=== PATIENT | female | born 1980 | race American Indian/Alaskan Native ===

== ENCOUNTER 2017-11-10 16:19 | Observation (INO) | payer BC ==
[2017-11-10 17:12] LABS: Basophils % (Auto) 0.3 % (0.0-1.8); Eosinophils # (Auto) 0.5 K/mm3 (0.0-0.4); Eosinophils % (Auto) 5.4 % (0.0-4.3); Hematocrit 20.5 % (30.3-42.9); Hemoglobin 6.4 gm/dl (10.1-14.3); Lymphocytes # (Auto) 1.6 K/mm3 (1.2-5.4); Lymphocytes % (Auto) 17.9 % (13.4-35.0); Mean Corpuscular HGB Conc 31 % (30-34); Mean Corpuscular Volume 76 fl (79-97); Monocytes # (Auto) 0.4 K/mm3 (0.0-0.8); Platelet Count 744 K/mm3 (140-440); Red Blood Count 2.72 M/mm3 (3.65-5.03)
[2017-11-10 17:22] LABS: Mean Corpuscular Hemoglobin 23 pg (28-32); Red Cell Distribution Width 23.7 % (13.2-15.2)
[2017-11-10 17:42] LABS: BUN/Creatinine Ratio 11; Blood Urea Nitrogen 8 mg/dL (7-17); Calcium 9.4 mg/dL (8.4-10.2); Hemolysis Index 0
[2017-11-10] MEDS ORDERED: NACL 0.9% 500 ML 500 ML IV ONE (20:42)
--- NOTE | 2017-11-10 20:53 | Emergency Department Report ---
HPI - General Chief Complaint: Arrhythmia/Palpitations Time Seen by Provider: 11/10/17 20:34 - HPI HPI: Room 6 The patient is a 36-year-old female presenting with a chief complaint of lightheadedness. The patient states her symptoms began 10/30/2017 with lightheadedness feeling sluggish and dizziness occasionally with movement. The patient states she went to [facility] for evaluation which included blood work as well as a CT of the chest which was reportedly negative. The patient states her symptoms persist so she came to the ED for reevaluation. Patient denies pain of any type of fever. Patient denies bright red blood per rectum but states her stool had been dark for 2-3 days while she was taking iron tablets. The patient states she does not have menstrual cycles since she's had an IUD placed Location: [See above] Duration: Approximately 1.5 weeks Quality: Lightheadedness Severity: Moderate Modifying factors: [see above] Context: [see above] Mode of transportation: Unknown ED Past Medical Hx - Past Medical History Previous Medical History?: Yes Additional medical history: Iron deficiency anemia - Surgical History Past Surgical History?: Yes Additional Surgical History: x 1, Mirena IUD - Family History Family history: no significant - Social History Smoking Status: Never Smoker Substance Use Type: None (denies illicit drug use), Alcohol (occasional) - Medications Home Medications: Home Medications Medication Instructions Recorded Confirmed Last Taken Type No Known Home Medications [No 11/10/17 11/10/17 Unknown History Reported Home Medications] ED Review of Systems ROS: Stated complaint: HEART RACING/SLUGGISH Other details as noted in HPI Constitutional: malaise Eyes: denies: eye pain ENT: denies: throat pain Cardiovascular: denies: chest pain Endocrine: denies: unexplained weight loss Gastrointestinal: melena (?). denies: abdominal pain Genitourinary: denies: dysuria Musculoskeletal: denies: back pain Skin: denies: change in color Neurological: other (dizziness). denies: headache Physical Exam - Physical Exam Vital Signs: Vital Signs 11/10/17 16:23 Temperature 99.3 F Pulse Rate 109 H Respiratory 18 Rate Blood Pressure 145/86 O2 Sat by Pulse 100 Oximetry Physical Exam: GENERAL: The patient is well-developed well-nourished female lying on stretcher not appearing to be in acute distress. [] HEENT: Normocephalic. Atraumatic. Extraocular motions are intact. Patient has moist mucous membranes. NECK: Supple. Trachea midline CHEST/LUNGS: Clear to auscultation. There is no respiratory distress noted. HEART/CARDIOVASCULAR: Regular. There is tachycardia. There is no gallop rub or murmur. ABDOMEN: Abdomen is soft, nontender. Patient has normal bowel sounds. There is no abdominal distention. SKIN: There is no rash. There is no edema. There is no diaphoresis. NEURO: The patient is awake, alert, and oriented. The patient is cooperative. The patient has no focal neurologic deficits. The patient has normal speech. Cranial nerves II through XII grossly intact, no drift MUSCULOSKELETAL: There is no evidence of acute injury. RECTAL: Guaiac-negative brown stool ED Course Vital Signs 11/10/17 16:23 Temperature 99.3 F Pulse Rate 109 H Respiratory 18 Rate Blood Pressure 145/86 O2 Sat by Pulse 100 Oximetry ED Medical Decision Making - Lab Data Result diagrams: 11/10/17 16:50 11/10/17 16:50 Laboratory Tests 11/10/17 11/10/17 11/10/17 16:50 16:50 16:50 WBC 9.0 RBC 2.72 L Hgb 6.4 L Hct 20.5 L MCV 76 L MCH 23 L MCHC 31 RDW 23.7 H Plt Count 744 H Lymph % (Auto) 17.9 [place] % (Auto) 5.0 Eos % (Auto) 5.4 H Baso % (Auto) 0.3 Lymph # 1.6 [place] # 0.4 Eos # 0.5 H Baso # 0.0 Seg Neutrophils % 71.4 H Seg Neutrophils # 6.4 PT INR APTT Sodium 138 Potassium 4.3 Chloride 97.4 L Carbon Dioxide 24 Anion Gap 21 BUN 8 Creatinine 0.7 Estimated GFR > 60 BUN/Creatinine Ratio 11 Glucose 123 H Calcium 9.4 Troponin T < 0.010 HCG, Qual Negative Urine Color Urine Turbidity Urine pH Ur Specific [place] Urine Protein Urine Glucose (UA) Urine Ketones Urine Blood Urine Nitrite Ur Reducing Substances Urine Bilirubin Urine Ictotest Urine Urobilinogen Ur Leukocyte Esterase Urine WBC (Auto) Urine RBC (Auto) U Epithel Cells (Auto) Urine Bacteria (Auto) Urine Mucus Urine HCG, Qual Blood Type Crossmatch 11/10/17 11/10/17 11/10/17 20:33 20:37 20:39 WBC RBC Hgb Hct MCV MCH MCHC RDW Plt Count Lymph % (Auto) [place] % (Auto) Eos % (Auto) Baso % (Auto) Lymph # [place] # Eos # Baso # Seg Neutrophils % Seg Neutrophils # PT 12.3 INR 0.87 APTT 30.0 Sodium Potassium Chloride Carbon Dioxide Anion Gap BUN Creatinine Estimated GFR BUN/Creatinine Ratio Glucose Calcium Troponin T < 0.010 HCG, Qual Urine Color Urine Turbidity Urine pH Ur Specific [place] Urine Protein Urine Glucose (UA) Urine Ketones Urine Blood Urine Nitrite Ur Reducing Substances Urine Bilirubin Urine Ictotest Urine Urobilinogen Ur Leukocyte Esterase Urine WBC (Auto) Urine RBC (Auto) U Epithel Cells (Auto) Urine Bacteria (Auto) Urine Mucus Urine HCG, Qual Blood Type O POSITIVE Crossmatch See Detail 11/10/17 20:58 WBC RBC Hgb Hct MCV MCH MCHC RDW Plt Count Lymph % (Auto) [place] % (Auto) Eos % (Auto) Baso % (Auto) Lymph # [place] # Eos # Baso # Seg Neutrophils % Seg Neutrophils # PT INR APTT Sodium Potassium Chloride Carbon Dioxide Anion Gap BUN Creatinine Estimated GFR BUN/Creatinine Ratio Glucose Calcium Troponin T HCG, Qual Urine Color Yellow Urine Turbidity Clear Urine pH 5.0 Ur Specific [place] 1.015 Urine Protein <15 mg/dl Urine Glucose (UA) Neg Urine Ketones Neg Urine Blood Neg Urine Nitrite Pos Ur Reducing Substances Not Reportable Urine Bilirubin Neg Urine Ictotest Not Reportable Urine Urobilinogen < 2.0 Ur Leukocyte Esterase Sm Urine WBC (Auto) 34.0 H Urine RBC (Auto) 2.0 U Epithel Cells (Auto) 4.0 Urine Bacteria (Auto) 2+ Urine Mucus 2+ Urine HCG, Qual Negative Blood Type Crossmatch - EKG Data -: EKG Interpreted by Me EKG shows normal: sinus rhythm Rate: normal - EKG Data When compared to previous EKG there are: previous EKG unavailable Interpretation: nonspecific ST-T wave musa (T-wave inversions in leads 3, aVF) - Differential Diagnosis symptomatic anemia, GI bleed Critical care attestation.: If time is entered above; I have spent that time in minutes in the direct care of this critically ill patient, excluding procedure time. ED Disposition Clinical Impression: Symptomatic anemia, UTI (urinary tract infection) Disposition: 09 OP ADMIT IP TO THIS HOSP Is pt being admited?: Yes Does the pt Need Aspirin: No Condition: Fair Referrals: PRIMARY CARE,MD [Primary Care Provider] - 3-5 Days Time of Disposition: 21:46 (hospitalist paged (Dr Johnson))
[2017-11-10 21:08] LABS: INR 0.87 (0.87-1.13)
[2017-11-10 21:18] LABS: HCG Qualitative,Urine Negative (Negative)
[2017-11-10 21:19] LABS: Bacteria,Urine 2+ /HPF (Negative); Bilirubin,Urine NEG (Negative); Blood,Urine NEG (Negative); Color,Urine Yellow (Yellow); Mucus,Urine 2+ /HPF; Protein,Urine <15 mg/dL mg/dL (Negative); Urobilinogen,Urine < 2.0 mg/dL (<2.0)
[2017-11-10 21:50] LABS: Free T4 (Free Thyroxine) 1.15 ng/dL (0.76-1.46)
[2017-11-10] MEDS ORDERED: BACTRIM DS PO SCH (22:00)
[2017-11-10] MEDS: BACTRIM DS PO SCH (23:02)
--- NOTE | 2017-11-10 23:29 | History and Physical Report ---
History of Present Illness Date of examination: 11/10/17 Chief complaint: With weakness and lightheaded for a week History of present illness: 35-year-old -Algerian female with no known medical conditions except history of anemia presents to the ED with above complaints and upon workup was noted to be severely anemic. She is being admitted for further evaluation. Apparently she was seen in ED at [facility] one week ago for similar complaints and was hydrated with IV fluids and discharged. She did feel somewhat better but still felt weak and intermittently lightheaded. And Comes here for checkup. She offers no other complaints. She denies any chest pain or shortness of breath. Denies any history of excessive menstruation. She says she has IUD and her periods are irregular and mild lasting 2-3 days. She denies any fever or chills sore throat or recent travel outside the country. Denies any recent viral infections. Denies nausea or vomiting abdominal pain hematemesis or melena. Denies any dysuria or urinary frequency. She states she used to have anemia in the past and used to take iron tablets. There is no history of blood transfusion in the past. Stool for occult blood was done by ED and was negative Past History Past Medical History: anemia Past Surgical History: , Other (IUD) Social history: no significant social history. denies: smoking, alcohol abuse Family history: diabetes, hypertension Medications and Allergies Allergies Allergy/AdvReac Type Severity Reaction Status Date / Time No Known Allergies Allergy Verified 11/10/17 22:26 Home Medications Medication Instructions Recorded Confirmed Last Taken Type No Known Home Medications [No 11/10/17 11/10/17 Unknown History Reported Home Medications] Active Meds: Active Medications Trimethoprim/Sulfamethoxazole (Bactrim Ds) 1 each PO Q12HR ERIC Last Admin: 11/10/17 23:02 Dose: 1 each Review of Systems All systems: negative (as stated above in HPI) Exam - Constitutional Vitals: Temp Pulse Resp BP Pulse Ox 97.7 F 95 H 18 139/73 100 11/10/17 22:45 11/10/17 22:45 11/10/17 22:45 11/10/17 22:45 11/10/17 22:45 General appearance: Present: no acute distress - EENT Eyes: Present: PERRL, EOM intact ENT: hearing intact, clear oral mucosa, no thrush - Neck Neck: Present: supple, normal ROM. Absent: masses or JVD - Respiratory Respiratory effort: normal Respiratory: bilateral: CTA - Cardiovascular Rhythm: regular Heart Sounds: Present: S1 & S2 - Extremities Extremities: No edema - Abdominal General gastrointestinal: Present: soft, non-tender. Absent: hepatomegaly, splenomegaly Female genitourinary: Present: deferred - Rectal Rectal Exam: deferred - Integumentary Integumentary: Present: clear - Musculoskeletal Musculoskeletal: strength equal bilaterally - Psychiatric Psychiatric: appropriate mood/affect - Neurologic Neurologic: CNII-XII intact, no focal deficits Results - Labs CBC & Chem 7: 11/10/17 16:50 11/10/17 16:50 Labs: Abnormal lab results 11/10/17 11/10/17 11/10/17 Range/Units 16:50 16:50 20:39 RBC 2.72 L (3.65-5.03) M/mm3 Hgb 6.4 L (10.1-14.3) gm/dl Hct 20.5 L (30.3-42.9) % MCV 76 L (79-97) fl MCH 23 L (28-32) pg RDW 23.7 H (13.2-15.2) % Plt Count 744 H (140-440) K/mm3 Eos % (Auto) 5.4 H (0.0-4.3) % Eos # 0.5 H (0.0-0.4) K/mm3 Seg Neutrophils % 71.4 H (40.0-70.0) % Chloride 97.4 L (98-107) mmol/L Glucose 123 H (65-100) mg/dL Urine WBC (Auto) (0.0-6.0) /HPF Crossmatch See Detail 11/10/17 Range/Units 20:58 RBC (3.65-5.03) M/mm3 Hgb (10.1-14.3) gm/dl Hct (30.3-42.9) % MCV (79-97) fl MCH (28-32) pg RDW (13.2-15.2) % Plt Count (140-440) K/mm3 Eos % (Auto) (0.0-4.3) % Eos # (0.0-0.4) K/mm3 Seg Neutrophils % (40.0-70.0) % Chloride (98-107) mmol/L Glucose (65-100) mg/dL Urine WBC (Auto) 34.0 H (0.0-6.0) /HPF Crossmatch Assessment and Plan - Patient Problems (1) Symptomatic anemia Current Visit: Yes Status: Acute Plan to address problem: Patient will be typed and crossmatched and transfused 1 unit of PRBC (2) Iron deficiency anemia Current Visit: Yes Status: Chronic Plan to address problem: We will do anemia workup including ferritin TIBC B12 and iron levels We will request GI consult to rule out GI source of her anemia (3) Thrombocytosis Current Visit: Yes Status: Chronic Plan to address problem: reactive / Secondary to JAC (4) Tachycardia Current Visit: Yes Status: Acute Plan to address problem: Most likely secondary to anemia TSH and T4 levels are normal (5) UTI (urinary tract infection) Current Visit: Yes Status: Acute Qualifiers: Urinary tract infection type: acute cystitis Hematuria presence: without hematuria Qualified Code(s): N30.00 - Acute cystitis without hematuria Plan to address problem: Possibly asymptomatic pyuria We'll start the patient on Bactrim
[2017-11-11 00:36] LABS: Iron 12 ug/dL (37-170); Total Iron Binding Capacity 363 mcg/dL (250-450)
[2017-11-11] MEDS ORDERED: ZOFRAN IV PRN (02:23)
[2017-11-11] MEDS ORDERED: SODIUM CHLORIDE FLUSH SYRINGE 10 ML IV PRN (02:23)
[2017-11-11] MEDS ORDERED: TYLENOL PO PRN (02:23)
[2017-11-11] MEDS ORDERED: HEPARIN SUB-Q SCH (06:00)
[2017-11-11 09:45] LABS: Hematocrit 23.9 % (30.3-42.9); Hemoglobin 7.6 gm/dl (10.1-14.3)
[2017-11-11] MEDS ORDERED: SODIUM CHLORIDE FLUSH SYRINGE 10 ML IV SCH (10:00)
[2017-11-11] MEDS: BACTRIM DS PO SCH (11:04)
[2017-11-11 12:17] VITALS: BP 109/57
--- NOTE | 2017-11-11 12:29 | Discharge Summary ---
Providers - Providers Date of Admission: 11/11/17 02:23 Date of discharge: 11/11/17 Attending physician: JERRELL DESIR 11/11/17 02:23 Consult to Physician [CONS] Routine Comment: Consulting Provider: JOANNE HURT Physician Instructions: Reason For Exam: JAC Primary care physician: UPHOLSTERY MECHANIC Hospitalization Reason for admission: generalized weakness/symptomatic anemia Condition: Fair Procedures: 1 unit PRBC transfusion Hospital course: Very pleasant 35-year-old -[place] female patient with no significant past medical history was admitted through emergency room with generalized weakness and lightheadedness of one-week duration noted to have severe anemia with hemoglobin of 6.4 She had always had iron deficiency anemia because of her heavy periods Has IUD with regular periods, follows with [facility] Patient was admitted to the hospital received 1 unit of PRBC and symptomatically managed Hemoglobin improved from 6.4-7.6, no active bleeding Urine analysis is consistent with UTI started on Bactrim DS The patient is comfortable no new complaints vital signs are stable Physical examination prior to discharge is unremarkable Advised [id number] ferrous sulfate and Bactrim for UTI Patient is hemodynamically and clinically stable at discharge Discharge diagnosis; --Symptomatic anemia --Acute blood loss anemia --status post 1 unit PRBC transfusion --Iron deficiency anemia --Urinary tract infection Disposition: DC- TO HOME OR SELFCARE Time spent for discharge: 32 min Core Measure Documentation - Palliative Care Palliative Care/ Comfort Measures: Not Applicable - Core Measures Any of the following diagnoses?: none Exam - Constitutional Vitals: Temp Pulse Resp BP Pulse Ox 98.4 F 84 16 109/57 99 11/11/17 12:03 11/11/17 12:03 11/11/17 12:03 11/11/17 12:03 11/11/17 12:03 General appearance: Present: no acute distress, well-nourished - EENT Eyes: Present: PERRL, EOM intact - Neck Neck: Present: supple, normal ROM - Respiratory Respiratory effort: normal Respiratory: negative: rales, rhonchi, wheezing - Cardiovascular Rhythm: regular Heart Sounds: Present: S1 & S2 - Extremities Extremities: no ischemia, No edema - Abdominal General gastrointestinal: Present: soft, non-tender, non-distended, normal bowel sounds - Integumentary Integumentary: Present: clear, warm - Musculoskeletal Musculoskeletal: strength equal bilaterally, generalized weakness - Psychiatric Psychiatric: appropriate mood/affect, cooperative Plan Activity: no restrictions Diet: regular Additional Instructions: Follow-up private [facility] within 1 week for further evaluation and management Follow up with: PRIMARY CARE, [Primary Care Provider] - 3-5 Days Prescriptions: Ferrous Sulfate 325 mg PO BID #60 tablet. Sulfamethoxazole/Trimethoprim [Bactrim DS TAB] 1 each PO Q12HR #10 tablet
== END 2017-11-11 14:50 | disposition home or self-care (01) ==
LOC: ED 16:19 → 3A 11-11 02:23
PROVIDERS: ADMIT Internal Medicine; ATTEND Internal Medicine
DX: D50.9 Iron deficiency anemia, unspecified (principal); D72.829 Elevated white blood cell count, unspecified; R00.0 Tachycardia, unspecified
CPT/HCPCS: 36415; 36430; 80048; 81001; 81025; 82271; 82607; 82728; 83550; 84439; 84443; 84484; 84703; 85014; 85018; 85025; 85610; 85730; 86850; 86900; 86901; 86920; 93005; 93010; 96372; 99285; G0378; J1644; J7040; P9016